=== PATIENT | male | born 1950 | race African-American/Black ===

== ENCOUNTER 2024-02-18 13:34 | Outpatient (CLI) | payer SELFPAY | END 2024-02-18 23:59 | disposition home or self-care (01) | LOC: WOU 13:34 | PROVIDERS: ATTEND Surgery | DX: Z01.818 Encounter for other preprocedural examination (principal); L59.8 Other specified disorders of the skin and subcutaneous tissue related to radiation; N30.41 Irradiation cystitis with hematuria; Z92.3 Personal history of irradiation | CPT/HCPCS: G0463 ==